=== PATIENT | male | born 1975 | race Caucasian/White ===

== ENCOUNTER 2021-03-12 12:27 | Inpatient (IN) | payer SELFPAY ==
[2021-03-12] VITALS (14 sets, daily range): BP systolic 102–150; BP diastolic 70–101; PULSE 110–125; RESP 16–29; TEMP 35.8–36.6; O2SAT 94–99; BMI 27.1
--- NOTE | ~2021-03-12 | CT_ITS ---
EXAMINATION: CT abdomen pelvis w con DATE: 03/12/2021 14:26 INDICATION: Abdominal distention. Hematuria. Jaundice. TECHNIQUE: Computed tomography (CT) of the abdomen and pelvis was performed with 100 mL Omnipaque 350 intravenous contrast. Automated exposure control and iterative reconstruction technique were employe d. The dose-length product was 1032.66 mGy-cm. COMPARISON: None. FINDINGS: The visualized portions of the lung bases demonstrate small pleural effusions and dependent atelectasis. The heart size is normal. There are coronary artery calcifications. No pericardial effu kg. The liver demonstrates enlargement of left lateral segment and heterogeneous attenuation, consi stent with cirrhosis. There is a paraumbilical portacaval shunt. There is mild splenomegaly measuring 15.5 cm. The gallbladder, pancreas, adrenal glands, and right kidney are normal. There is a 9 mm cys t in left kidney. There is a right inguinal hernia containing fat. There are no dilated loops of jacqui l. There is a large volume of ascites. There are no pathologically enlarged lymph nodes. There is mil d thoracolumbar spondylosis. IMPRESSION: 1. Cirrhosis of the liver with portal venous hypertension. 2. Large volume of ascites. 3. Small pleural effusions. Reviewed, dictated and finalized at location A.
--- NOTE | 2021-03-12 12:33 | ECG_ITS ---
Measurements Intervals [place] Rate: 122 P: 6 WA: 153 QRS: -10 QRSD: 106 T: 72 QT: 341 QTc: 487 Interpretive Statements SINUS TACHYCARDIA NONSPECIFIC ST & T-WAVE ABNORMALITY- LAT/HIGH LAT LEADS BASELINE ARTIFACT- I, II, III, AVR, AVL, AVF, V4-V5 ABNORMAL ECG Electronically Signed On 03-12-2021 13:11:39 CDT by Rubio Ayala D.O.
--- NOTE | 2021-03-12 12:58 | ED.ALCOHOL ---
HPI - Alcohol General Chief Complaint: Alcohol Stated Complaint: weakness Time Seen by Provider: 03/12/21 12:58 History of Present Illness HPI narrative: 46 yo male with no know past medical history presents to the ed for weakness, nausea, leg pain, and SOB. He reports that he drank 1 pint per day for many years and quit 4 days. ago. This is the first time he has ever attempted to quit. He is noted to be quite jaundiced, he says that he had not noticed. He does admit that his abdomen is more distended than usual. No tremor. He says that he has not been able to eat for days. No seizure. Related Data Home Medications Medication Instructions Recorded Confirmed No Home Medications 03/12/21 03/12/21 Allergies Allergy/AdvReac Type Severity Reaction Status Date / Time No Known Allergies Allergy Verified 03/12/21 13:13 Review of Systems Review of Systems: All systems reviewed & are unremarkable except as noted in HPI and below Constitutional: Constitutional: Denies fever(s) and Reports weakness Eyes: Eyes: Reports no additional eye complaints ENT: Denies dizziness and Reports nasal congestion Cardiovascular: Cardiovascular: Denies chest pain Respiratory: Respiratory: Reports dyspnea Gastrointestinal: Gastrointestinal: Reports nausea and Denies vomiting Genitourinary: Comments: dark urine Neurologic: Denies dizziness and Reports weakness Hematologic/Lymphatic: Hematologic/Lymphatic: Denies easy bleeding [facility] Social History Social History (Updated 03/12/21 @ 13:40 by Cachorro Jewell MD) Alcohol use details: 1 pint per day until 4 days ago Substance use: never Gender identity (if verbalized by the patient): Male Exam Const: General: alert and ill appearing acutely and chronically Orientation/consciousness: patient oriented x3 HENMT: General nose exam: Normal nares present Mouth: Yes dry mucous membranes Eyes: Conjunctivae: conjunctival abnormality bilateral conjunctival icterus and diffuse Pupils: Equal, round and reactive pupils present Neck: Neck: normal visual inspection Resp: Effort & Inspection: normal respiratory effort Auscultation: clear to auscultation bilaterally Cardio: Rate: regular rate Rhythm: regular rhythm GI: Inspection: distended GI Palp: No Tenderness to palpation present (GI) Percussion: Yes Fluid wave present Skin: General skin exam: jaundice Neuro: General: patient oriented x3, moves all extremities, no focal motor deficits and CN's II-XI intact bilaterally Speech: normal speech Extrem: General: edema bilateral Psych: Appearance: grossly normal and disheveled Mental Status: mental status grossly normal Course Vital Signs Vital signs: Vital Signs Temperature 36.6 C 03/12/21 12:31 Pulse Rate 125 H 03/12/21 12:31 Respiratory Rate 20 03/12/21 12:31 Blood Pressure 144/101 H 03/12/21 12:31 Pulse Oximetry 95 03/12/21 12:31 Temperature 36.6 C 03/12/21 12:31 Pulse Rate 121 H 03/12/21 13:34 Respiratory Rate 29 H 03/12/21 13:34 Blood Pressure 107/77 03/12/21 13:34 Pulse Oximetry 98 03/12/21 13:34 MDM - Alcohol MDM Narrative Medical decision making narrative: CT shows cirrohsis. He also has significant hyponatremia. Most likely due to poor intake. I will begin hydrating him. Dose of thimine given. Dr. Robledo will consult. Differential Diagnosis Differential diagnosis: Likely alcohol withdrawal syndrome and other (hepatitis, cirrhosis, sepsis, ) Medical Records Attestation: I reviewed the patient's medical records. Lab Data Attestation: I reviewed the patient's lab results. Result diagrams: 03/12/21 12:51 03/12/21 12:51 Labs: Lab Results 03/12/21 03/12/21 03/12/21 Range/Units 12:51 12:51 12:51 WBC 15.1 H (4.5-10.0) K/mm3 RBC 2.33 L (4.6-6.20) M/mm3 Hgb 8.1 L (14.0-18.0) g/dL Hct 23.7 L (42.0-52.0) % MCV 101.7 H (80-100) fl MCH 34.8 H (26-34) pg
[2021-03-12 13:02] LABS: Basophils Percent Auto 0.2 % (0.2-1.2); Eosinophils Percent Auto 0.1 % (0-4.4); Hematocrit 23.7 % (42.0-52.0); Hemoglobin 8.1 g/dL (14.0-18.0); Immature Granulocyte Absolute 0.25 K/mm3 (0.00-0.031); Immature Granulocyte Percent A 1.7 % (0-0.5); Lymphocytes Absolute Auto 0.86 K/mm3 (0.9-3.2); Lymphocytes Percent Auto 5.7 % (18.3-44.2); Mean Corpuscular HGB Conc 34.2 g/dl (32-36); Mean Corpuscular Hemoglobin 34.8 pg (26-34); Mean Corpuscular Volume 101.7 fl (80-100); Mean Platelet Volume 9.7 fl (7.4-10.4); Monocytes Absolute Auto 0.7 K/mm3 (0.1-0.6); Monocytes Percent Auto 4.4 % (2.6-8.5); Neutrophils Absolute Auto 13.3 K/mm3 (1.3-6.7); Neutrophils Percent Auto 87.9 % (45.5-73.1); Platelet Count Result 147 k/mm3 (150-375); Red Blood Count 2.33 M/mm3 (4.6-6.20); Red Cell Distribution Width 15.6 % (11.5-14.5); White Blood Count 15.1 K/mm3 (4.5-10.0)
[2021-03-12 13:12] LABS: INR 1.6; Prothrombin Time 19.5 Seconds (11.1-14.7)
[2021-03-12 13:14] LABS: Partial Thromboplastin Time 47.8 SECONDS (22.3-36.8)
[2021-03-12] MEDS: LORazepam INJ (*CRX) 2 MG/ML VIAL 4 MG IV PUSH (13:14)
[2021-03-12 13:16] LABS: Ammonia < 9 umol/L (9-30)
[2021-03-12 13:17] LABS: Alanine Aminotransferase 51 U/L (4-50); Albumin Level 3.8 g/dL (3.5-5.1); Alkaline Phosphatase 227 U/L (38-126); Anion Gap 19 mmol/L (8-16); Aspartate Amino Transferase 226 U/L (17-59); Bilirubin,Total 24.7 mg/dL (0.2-1.3); Blood Urea Nitrogen 18 mg/dL (9-20); Calcium 9.5 mg/dL (8.4-10.2); Carbon Dioxide 22 mmol/L (22-30); Chloride 78 mmol/L (98-107); Estimated CRCL calculation 162 ml/min; Estimated Glomerular Filt Rate > 60; Glucose 117 mg/dL (75-110); Lipase 1264 U/L (23-300); Potassium 3.7 mmol/L (3.4-5.0); Sodium 119 mmol/L (137-145)
[2021-03-12] MEDS: THIAMINE HCL 200 MG/2 ML VIAL 100 MG IV PUSH (13:29)
--- NOTE | 2021-03-12 13:59 | PC.NURSE ---
Called to lab to add hep panel talked to Katy at [phone]
[2021-03-12] MEDS: SODIUM CHLORIDE 0.9% IV 1,000 ML 999 ML IV CONT (14:30)
[2021-03-12 14:35] LABS: Lactic Acid Reflex 2.3 mmol/L (0.7-2.1)
[2021-03-12 17:00] LABS: Reflex Lactic Acid Yes or No Add Lactic
[2021-03-12] MEDS: LACTATED RINGERS 1,000 ML 125 ML IV CONT (17:03)
[2021-03-12] MEDS: LORazepam INJ (*CRX) 2 MG/ML VIAL IV PUSH ×2 (17:05→19:57)
[2021-03-12 17:45] LABS: Lactic Acid 1.4 mmol/L (0.7-2.1)
[2021-03-12 17:52] LABS: HAV RESULT Negative (Negative); Hepatitis B Core IgM Result Negative (Negative)
[2021-03-12 18:03] LABS: Hepatitis C Virus Antibody Negative (Negative)
[2021-03-12 18:07] LABS: Hepatitis B Surface Antigen Negative (Negative)
--- NOTE | 2021-03-12 19:30 | ADMGEN ---
This patient, Tre Reddy, was admitted to IMU Room 206-01 on 03-12-21 at 1830. Patient/family oriented to hospital policies and general routines including ID bracelet, bed and alarms, visiting hours, pain management, procedures, bathroom and other care routines, personal items, smoking policy, room service/diet, and visiting hours. Information on how to activate the Rapid Response Team has been discussed. Patient/Family are encouraged to report perceived risks to care and to ask questions if they do not understand what they are told or what they should do.
[2021-03-12] MEDS: LACTATED RINGERS 1,000 ML 50 ML IV CONT (20:00)
--- NOTE | 2021-03-12 21:48 | PM.IMHP ---
H&P: HPI History of Present Illness Date/Time: 03/12/21 21:48 this is a 46-year-old male patient lives with his mother to the emergency room for complaints of weakness, nausea, leg pain and shortness of breath. The patient drinks a pt of vodka a day for many years and quit about 4 days ago. There is no mention of any withdrawal symptoms. The patient was very jaundiced when he came in. He does admit that his abdomen is more distended than usual. He did have any visual disturbances when he came to the emergency room and no tremor. The patient has not been able to eat for days. He has not had any seizure activity. Patient's H&H is 8.1 and 23.7. His sodium is 119. His white count is 15.1. AST is 226, ALT 51, alkaline phosphatase 227. Ammonia levels listen 9. Lipase 1264. INR is 1.[address] of the abdomen was read as 1. Cirrhosis of the liver with portal venous hypertension. 2. Large volume of ascites. 3. Small pleural effusions. ER started the patient on IV fluids and gave him some Ativan and some thiamin. Patient is being admitted to inpatient services prior to accepting the patient I requested that GI be notified and accepted the patient as a consult. It is reported that GI was and agreement to consult on the patient. Admitted to inpatient services on the date of service of 03/12/2021 Chief Complaint: Jaundice Review of Systems Review of Systems: Narrative: The patient is answering some questions but he had just been given Ativan. All systems reviewed & are unremarkable except as noted in HPI and below Constitutional: Constitutional: Reports as per HPI and Reports no additional constitutional complaints Eyes: Eyes: Reports as per HPI and Reports no additional eye complaints ENT: Reports system reviewed and no additional complaints, except as documented and Reports Normal hearing present Cardiovascular: Cardiovascular: Reports no additional cardiovascular complaints Respiratory: Respiratory: Reports no additional respiratory complaints and Reports no additional respiratory complaints Gastrointestinal: Gastrointestinal: Reports as per HPI and Reports no additional gastrointestinal complaints Musculoskeletal: Musculoskeletal: Reports no additional musculoskeletal complaints Integumentary/Breasts: Skin/Breast: Reports system reviewed and no additional complaints, except as docu and Reports as per HPI Neurologic: Reports system reviewed and no additional complaints, except as documented, Reports as per HPI and Reports Normal hearing present Psychiatric: Psychiatric: Reports no additional psychiatric complaints and Reports as per HPI Endocrine: Endocrine: Reports no additional endocrine complaints Hematologic/Lymphatic: Hematologic/Lymphatic: Reports no additional hematologic/lymphatic complaints Allergic/Immunologic: Allergic/Immunologic: Reports no additional allergic/immunologic complaints [facility] Surgical History Surgical History (Updated 03/12/21 @ 21:55 by Lynda Ayala NP) No pertinent past surgical history Family History Family History (Updated 03/12/21 @ 19:31 by Yamilet Evans RN) Other Unknown family medical history Social History Social History (Updated 03/12/21 @ 21:57 by Lynda Ayala NP) Social History: The patient stated that he quit smoking about 2 years ago. He does not use any illicit drugs. There was some mention about marijuana but I am not quite sure if he still uses it. He lives with his mother. He has never been and does not have any children he drinks a pt of vodka a day for many years. The patient is listed as a full code. Unable to determine who is his durable power occupational medicine officer for healthcare. Smoking packs per day: 1 Smoking cigarettes per day: 20.0 Years smoked: 25 Smoking pack-years: 25.00 Smoking status: Former smoker Tobacco type: cigarettes Alcohol intake: current Drinks per week: 56 Alcohol use details: 1 pint per day until 4 days ago
[2021-03-12 22:25] LABS: Ammonia 13 umol/L (9-30)
[2021-03-12] MEDS: rifAXIMin 550 MG TABLET PO (22:49)
[2021-03-12] MEDS: FUROSEMIDE INJ 40 MG/4 ML VIAL 20 MG IV PUSH (22:49)
[2021-03-12] MEDS: FAMOTIDINE 20 MG/2 ML VIAL IV PUSH (22:49)
[2021-03-12 23:04] LABS: Anion Gap 14 mmol/L (8-16); Blood Urea Nitrogen 18 mg/dL (9-20); Calcium 8.8 mg/dL (8.4-10.2); Carbon Dioxide 22 mmol/L (22-30); Chloride 83 mmol/L (98-107); Estimated CRCL calculation 197 ml/min; Estimated Glomerular Filt Rate > 60; Glucose 93 mg/dL (75-110); Potassium 3.5 mmol/L (3.4-5.0); Sodium 119 mmol/L (137-145)
[2021-03-12] MEDS: chlordiazePOXIDE (*CRX) 25 MG CAPSULE PO (23:41)
[2021-03-13] VITALS: PULSE 118; O2SAT 94
[2021-03-13 01:43] LABS: Add Urine Microscopic? YES; Appearance Urine Clear (Clear); Bacteria Urine Trace /hpf; Bilirubin Urine 2+ (Negative); Blood Urine Negative (Negative); Color Urine Amber (Yellow); Glucose Urine UA Negative (Negative); Ketones Urine Negative (Negative); Leukocyte Esterase Ur Negative LEU/UL (NEGATIVE); Mucus Urine Rare /lpf; Nitrate Urine Negative (Negative); Protein Urine Negative (Negative); RBC Urine 0-2 /hpf (0-2); Specific Grav Ur 1.011 (1.001-1.035); WBC Urine 0-3 /hpf (0-3)
[2021-03-13 02:00] VITALS: PULSE 120
[2021-03-13] MEDS: LORazepam INJ (*CRX) 2 MG/ML VIAL 0.5 MG IV PUSH (03:48)
[2021-03-13 04:00] VITALS: BP 145/83; PULSE 122; PULSE 123; RESP 24; TEMP 36.3; O2SAT 90; O2SAT 94
[2021-03-13 04:01] LABS: Sodium Urine Random 62 meq/L
[2021-03-13 05:03] VITALS: O2SAT 92
[2021-03-13 05:09] LABS: Lactic Acid Reflex 1.1 mmol/L (0.7-2.1)
--- NOTE | 2021-03-13 08:44 | PC.NURSE ---
MTS called back and he is a candidate for them waiting for their return call after talking with family. Patient in [facility] [place] [phone]. home not called yet since we are waiting for [facility].
--- NOTE | 2021-03-13 22:09 | PC.NURSE ---
At 0543 A.M. on 03/13/2021, this nurse went in to assess this patient and administer scheduled morning dose of Librium. Upon approaching the bedside, I observed patient was agonal breathing. Patient was unresponsive to verbal or painful stimuli, heart rate on the monitor showed a rate of 30. Another floor nurse arrived to the patients room. Carotid Pulse was palpated with no pulse present. Patient was in PEA. Chest compressions started by this nurse at 0544, Code blue called by another RN at 0545. Crash cart brought into room, patient connected to defibrillator pads, CPR board placed under patient, chest compressions continued. Respiratory therapy, Charge nurse, house wrecker, hospital histologic technician, and two additional floor RN's assisted with patient code. Cabin Service Agent contacted patient's family. See code sheet for code details.
[2021-03-16 02:40] LABS: Osmolality, Urine 320 mOsm/kg (50-1200)
--- NOTE | 2021-04-06 21:58 | P.DN_ITS ---
Discharge Sum: Prov Provider Primary care physician: GEOPOLITICS TEACHER PHYSICIAN Admitting provider: Mami Tatum MD Consults: 03/12/21 15:40 Consult to Physician Routine Comment: Consulting Provider: Solo Linares Reason for consultation: cirrhosis Has provider been notified: Yes 03/13/21 Consult to Physician Routine Comment: Consulting Provider: Tong López Reason for consultation: Low serum sodium. Has provider been notified: No Discharge Sum: Diag Contributing Factors (1) Ascites: (2) Anemia: (3) Elevated liver enzymes: (4) Cirrhosis with alcoholism: (5) Hyponatremia: Discharge Sum: Summary Date and Time Date of admission: 03/12/21 15:38 Date of : 03/13/21 Time of : 05:58 Summary Details: I admitted the patient on 03/12/2021 at 10:00 p.m.. My shift ended at midnight that night. The patient coded the next morning and I was not present. I am not aware of the details. Please see the code sheet. The nurses noted that there was a assistant baseball coach she please see that. Please see the admission assessment on 03/12/2021. According to the nurse's notes the patient at 5:58 a.m. on 03/13/2021. And it looks like Dr. Alcala the ER doctor pronounced the patient at that time. It also appears that Dr. Louise had been notified of that code. Additional Data Attending physician: Lynda Ayala NP
--- NOTE | 2021-04-22 18:40 | PM.EVENT ---
Event Note Event Note Event Note: Late entry note for 03/13/21 A rapid response was called in the siebel administrator hours after patient became unresponsive and then had PEA cardiac arrest. Patient was coded with no ROSC achieved.Family was contacted.
== END 2021-03-13 05:58 | disposition expired | DRG 280 ==
LOC: ANHED 16:13 → ANHIMU 03-13 08:32
PROVIDERS: Emergency Medicine; Admitting Provider Family Medicine; Emergency Provider Emergency Medicine; Visit Provider Nurse Practitioner
DX: K70.31 Alcoholic cirrhosis of liver with ascites (principal); I46.9 Cardiac arrest, cause unspecified; F10.20 Alcohol dependence, uncomplicated; E87.1 Hypo-osmolality and hyponatremia; R74.8 Abnormal levels of other serum enzymes; D64.9 Anemia, unspecified; Z87.891 Personal history of nicotine dependence
CPT/HCPCS: 36415; 74177; 80048; 80053; 80074; 81001; 82140; 83605; 83690; 83930; 83935; 84300; 84443; 85025; 85610; 85730; 86850; 86900; 86901; 87040; 92950; 93005; 96361; 96374; 96375; 99285; A9270; J0171; J1940; J2060; J3411; J7030; J7120; Q9967